=== PATIENT | male | born 1985 | race Caucasian/White ===

== ENCOUNTER 2018-04-27 18:38 | Emergency (ER) | payer OTHER, MEDICAID ==
[2018-04-27] MEDS: HYDROCODONE/APAP (5/325) TAB PO (20:12)
== END 2018-04-27 22:06 | disposition home or self-care (01) ==
LOC: FTE 18:38
DX: L03.115 Cellulitis of right lower limb (principal)
CPT/HCPCS: 73610; 73610-RT; 93971; 99284-25

== ENCOUNTER 2018-04-28 21:01 | Emergency (ER) | payer OTHER, MEDICAID | END 2018-04-28 22:15 | disposition home or self-care (01) | LOC: FTE 21:01 | DX: M79.604 Pain in right leg (principal); F17.210 Nicotine dependence, cigarettes, uncomplicated | CPT/HCPCS: 99283; Z7502 ==

== ENCOUNTER 2018-07-10 23:16 | Emergency (ER) | payer OTHER, MEDICAID | END 2018-07-11 01:46 | disposition home or self-care (01) | LOC: FTE 23:16 | DX: F41.9 Anxiety disorder, unspecified (principal); F17.210 Nicotine dependence, cigarettes, uncomplicated | CPT/HCPCS: 99283; Z7502 ==